=== PATIENT | male | born 2000 | race Two or more races ===

== ENCOUNTER 2018-08-29 18:55 | Emergency (ER) | payer OTHER ==
[~2018-08-29] VITALS: Ht 177.8 cm; Wt 72.6 kg
--- NOTE | 2018-08-29 19:07 | NUR ---
ED Nurse Note: pt came to ed c/o of laceration on right finger per pt he was "doing tricks with a butterfly knife" and cut himself. per pt pain is at a 3/10. pt is calm, pt appyling pressure on finger with his shirt.
[2018-08-29 19:09] VITALS: BP 118/77
[2018-08-29] MEDS ORDERED: Lidocaine 1% MPF 10mg/ml 5ml INJ ONE ×2 (19:15→20:00)
[2018-08-29] MEDS ORDERED: Bacitracin Oint UD TOPIC ONE (19:15)
[2018-08-29] MEDS ORDERED: Lidocaine 1% MPF 10mg/ml 5ml ONE (19:35)
--- NOTE | 2018-08-29 19:35 | NUR ---
ED Nurse Note: per ERPA verbal order, retrieve another 5ml lidocaine.
[2018-08-29] MEDS ORDERED: CEPHALEXIN500 MG ORAL (20:14)
[2018-08-29] MEDS ORDERED: IBUPROFEN600 MG ORAL (20:14)
[2018-08-29 20:20] VITALS: BP 118/77
--- NOTE | 2018-08-29 20:20 | NUR ---
ER DISCHARGE NOTE: Patient is cleared to be discharged per ERMD, pt is aox4, on room air, with stable vital signs. pt was given dc and prescription instructions, pt was able to verbalize understanding, pt id band removed. pt is able to ambulate with steady gait. pt took all belongings.
--- NOTE | 2018-08-29 21:43 | Emergency Room Report ---
History of Present Illness General Chief Complaint: Laceration Source: Patient Present Illness HPI Patient is a 17-year-old male presenting for right hand laceration which occurred just prior to arrival. He states that he was playing with a knife which slipped and cut his right index and middle finger. He noticed bleeding and pain. Pain is a 7 out of 10 throbbing sensation and does not radiate. He does admit to some mild numbness to the index finger. He states that he is up- to-date with immunizations including tetanus. He denies any other injury or symptoms Allergies: Coded Allergies: No Known Allergies (Unverified , 08/29/18) Patient History Past Medical History: see triage record Pertinent Family History: none Immunizations: UTD Reviewed Nursing Documentation: PMH: Agreed; PSxH: Agreed Nursing Documentation-PMH Past Medical History: No Stated History Review of Systems All Other Systems: negative except mentioned in HPI Physical Exam Vital Signs Date Time Temp Pulse Resp B/P (MAP) Pulse Ox O2 Delivery O2 Flow Rate FiO2 08/29/18 19:03 98.4 92 16 118/77 99 Room Air Sp02 EP Interpretation: reviewed, normal General Appearance: no apparent distress, alert, GCS 15, non-toxic Head: normocephalic, atraumatic Musculoskeletal: back normal, gait/station normal, normal range of motion, tender - over lacerations of R 2nd and 3rd fingers Neurologic: alert, oriented x3, responsive, motor strength/tone normal, sensory intact, speech normal Psychiatric: judgement/insight normal, memory normal, mood/affect normal, no suicidal/homicidal ideation Skin: no rash, laceration - 2cm linear laceration to R 2nd digit and 1cm to R 3rd Procedures Splinting Splinting : Consent: Verbal Location: R 2nd digit Pre-Made Type: metal Splint: finger splint Pre-Proc Neuro Vasc Exam: normal Post-Proc Neuro Vasc Exam: normal Patient Tolerated: Well Complications: None Laceration/Wound Repair Laceration/Wound Repair : Consent: Verbal Wound Location: upper extremity Wound's Depth, Shape: into muscle, linear Wound Length (cm): 2 Wound Explored: clean Irrigated w/ Saline (ccs): 100 Betadine Prep?: Yes Anesthesia: 1% Lidocaine Volume Anesthetic (ccs): 5 Wound Debrided: minimal Wound Repaired With: sutures Suture Size/Type: 5:0, nylon Number of Sutures: 4 Layer Closure?: No Sterile Dressing Applied?: Yes Splint Applied?: Yes Type of Splint Applied: metal finger Sling Applied?: No Patient Tolerated: Well Complications: None Medical Decision Making PA Attestation Dr. Rowland is my supervising physician. Patient management was discussed with my supervising physician Diagnostic Impression: Primary Impression: Finger laceration Qualified Codes: S61.212A - Laceration without foreign body of right middle finger without damage to nail, initial encounter ER Course Patient is a 17-year-old male presenting for right hand laceration which occurred just prior to arrival. Ddx considered include but not limited to fracture, tendon/ligament injury, avulsion, nerve damage PE: NAD R 2nd finger has 2cm linear laceration to lateral region distal to PIPJ. Sensation decreased to 2nd digit. Full AROM intact Right third digit has a 1 cm linear laceration proximal to the PIP joint. Does not extend through dermis The wound was irrigated with normal saline and cleaned with betadine. A 27g needle was used to administer 5mL of lidocaine w.o epi for digital block. 4 sutures were placed with 5-0 nylon. The wound was well approximated and the patient tolerated the procedure well. The wound was then cleaned and bacitracin was applied. The 3rd digit laceration was repaired with Dermabond. Wound well approximated. A metal finger splint was applied The patient will continue to keep the wound clean and dry and will followup with PMD. Suture instructions provided. ER precautions are given Last Vital Signs Date Time Temp Pulse Resp B/P (MAP) Pulse Ox O2 Delivery O2 Flow Rate FiO2 08/29/18 20:20 98.4 92 16 118/77 99 Room Air Status: improved Disposition: HOME, SELF-CARE Condition: Improved Scripts Cephalexin* (KEFLEX*) 500 Mg Capsule 500 MG ORAL EVERY 12 HOURS, #14 CAP 0 Refills Prov: TERZIAN,JOSETTE P.A. 08/29/18 Ibuprofen* (MOTRIN*) 600 Mg Tablet 600 MG ORAL Q8H PRN for For Pain, #30 TAB 0 Refills Prov: TERZIAN,JOSETTE P.A. 08/29/18 Departure Forms: Return to Work Return to Work Date: Aug 30, 2018 Work Restrictions: No Heavy Lifting Other Restrictions: No lifting over 15 pounds Return to Full Activity: Sep 06, 2018 Patient Instructions: Laceration Care, Adult, Tissue Adhesive Wound Care, Sutured Wound Care Additional Instructions: I discussed my findings with the patient. All questions and concerns have been answered. Treatment and medication compliance have been addressed. I advised the patient that they need to follow up with PMD in 5-7 days for wound check and suture removal. If you are unable to see PMD, return to the ED in 5-7 days. Return to ED if pain remains or worsens, you notice discharge from the wound, the wound continues to bleed, the suture/s fall out, you notice a fever or chills, or for any reason. Patient is advised to keep the wound clean and apply an antibacterial ointment. Patient verbalized understanding of discharge instructions. JOSETTE LANDEROS Aug 29, 2018 21:43
== END 2018-08-29 20:20 | disposition home or self-care (01) ==
LOC: EMR 19:35
DX: S61.210A Laceration without foreign body of right index finger without damage to nail, initial encounter (principal); S61.212A Laceration without foreign body of right middle finger without damage to nail, initial encounter; W26.0XXA Contact with knife, initial encounter; Y92.89 Other specified places as the place of occurrence of the external cause
CPT/HCPCS: 12001; 29130; 99283; Z7502

== ENCOUNTER 2018-09-05 22:33 | Emergency (ER) | payer OTHER ==
[~2018-09-05] VITALS: Ht 177.8 cm; Wt 70.3 kg
[~2018-09-05 22:33] MED LIST: CEPHALEXIN500 MG ORAL; IBUPROFEN600 MG ORAL
[2018-09-05] MEDS ORDERED: NKM (22:44)
[2018-09-05 22:55] VITALS: BP 113/81
--- NOTE | 2018-09-05 23:09 | NUR ---
HAND-OFF: Report given to Lydia RN and endorsed care.
[2018-09-05] MEDS ORDERED: Bacitracin Oint UD TOPIC ONE ×2 (23:10→23:15)
--- NOTE | 2018-09-05 23:10 | Emergency Room Report ---
History of Present Illness General Chief Complaint: Wound Recheck/Suture Removal Source: Patient, Medical Record Present Illness HPI Is a 17-year-old male who is right-hand dominant. He presents with chief complaint wound check. He was here week ago for laceration. He has suture repair and Dermabond. His middle finger of the right hand had Dermabond it came up. He denies any other injury. No drainage. Allergies: Coded Allergies: No Known Allergies (Unverified , 08/29/18) Patient History Past Medical History: none, see triage record, old chart reviewed Past Surgical History: none Pertinent Family History: none Social History: Denies: smoking Immunizations: other Reviewed Nursing Documentation: PMH: Agreed; PSxH: Agreed Nursing Documentation-PMH Past Medical History: No Stated History Review of Systems Eye: Denies: eye pain, blurred vision ENT: Denies: ear pain, nose congestion, throat swelling Respiratory: Denies: cough, shortness of breath Cardiovascular: Denies: chest pain, palpitations Gastrointestinal: Denies: abdominal pain, diarrhea, nausea, vomiting Musculoskeletal: Denies: back pain, joint pain Skin: Denies: rash Neurological: Denies: headache, numbness Endocrine: Denies: increased thirst, increased urine Hematologic/Lymphatic: Denies: easy bruising All Other Systems: negative except mentioned in HPI Physical Exam Vital Signs Date Time Temp Pulse Resp B/P (MAP) Pulse Ox O2 Delivery O2 Flow Rate FiO2 09/05/18 22:41 78 16 117/80 98 Room Air vitals normal Sp02 EP Interpretation: reviewed, normal General Appearance: well appearing, no apparent distress, alert Head: normocephalic, atraumatic Eyes: bilateral eye PERRL, bilateral eye EOMI ENT: hearing grossly normal, normal pharynx Neck: full range of motion, supple, no meningismus Respiratory: chest non-tender, lungs clear, normal breath sounds Cardiovascular #1: regular rate, rhythm, no murmur Gastrointestinal: normal bowel sounds, non tender, no mass, no organomegaly, no bruit, non-distended Musculoskeletal: back normal, gait/station normal, normal range of motion, other - Right index finger: Laceration site looks clean. Sutures intact. Psychiatric: mood/affect normal Skin: warm/dry Procedures Additional Procedure Procedure Narrative procedure: Suture removal Indication: Laceration repair Description: With a small scissor, i removed the sutures without any problem. Pt tolerated procedure w/o problems. Medical Decision Making Diagnostic Impression: Primary Impression: Encounter for removal of sutures ER Course Patient here for wound check. Suture removed without a problem. I excised the skin avulsion. We'll discharge home. Last Vital Signs Date Time Temp Pulse Resp B/P (MAP) Pulse Ox O2 Delivery O2 Flow Rate FiO2 09/05/18 22:41 78 16 117/80 98 Room Air Status: improved Disposition: HOME, SELF-CARE Condition: Stable Patient Instructions: Wound Check Additional Instructions: follow-up with your Dr. 7 days. Return if worse. Kyle Sumner MD Sep 05, 2018 23:10
[2018-09-05 23:16] VITALS: BP 117/80
--- NOTE | 2018-09-05 23:16 | NUR ---
ER DISCHARGE NOTE: Patient is cleared to be discharged per Dr. Sumner. Suture removed by . Pt is A/O x4 on room air with stable vital signs. Pt was given dc instructions and able to verbalize understanding. Pt's ID band removed. Pt is able to ambulate with steady gait and took all belongings.
== END 2018-09-05 23:15 | disposition home or self-care (01) ==
LOC: EMR 22:56
DX: Z48.02 Encounter for removal of sutures (principal)
CPT/HCPCS: 99281